=== PATIENT | female | born 1955 | race Caucasian/White ===

== ENCOUNTER → 2017-07-29 | Outpatient (CLI) | payer OTHER ==
[~2017-07-29] MED LIST: ASPI81EC PO; CALCAVITDA PO; ERGO400 PO; HYDACE5 PO; IBUP600 PO; LORA1 PO; MULVITMIND PO; NAPR220 PO; SULTRISS PO; TAMOXIFEN PO
== END ==
LOC: LAB EV 11:52 → LAB SHORT 11:52
DX: R35.0 Frequency of micturition (principal)
CPT/HCPCS: 87086

== ENCOUNTER 2017-11-02 06:19 | Day surgery (SDC) | payer OTHER ==
[~2017-11-02] VITALS: Ht 185.4 cm; Wt 87.3 kg
[~2017-11-02 06:19] MED LIST changes: +AMLODIPINE-OLM1 EACH PO; +CALCIUM LACTAT650 MG PO; +ESCI20 PO; +FLONASE ALLERG9.9 ML; +HYDHCL25 PO; +HYDSUL200 PO; +Nortriptyline H10 MG PO; +Salmon Oil 1,01 EACH PO; +Vitamin C100 M1 PO
== END 2017-11-02 10:06 | disposition home or self-care (01) ==
LOC: ORSCSDS 06:19
PROVIDERS: Otolaryngology
PROC: 09BL7ZZ Excision of Nasal Turbinate, Via Natural or Artificial Opening (ICD-10-PCS; principal; 2017-11-02 07:30)
PROC: 09SM0ZZ Reposition Nasal Septum, Open Approach (ICD-10-PCS; principal; 2017-11-02 07:30)
DX: J34.2 Deviated nasal septum (principal); J34.3 Hypertrophy of nasal turbinates; I10 Essential (primary) hypertension; F41.9 Anxiety disorder, unspecified; Z87.891 Personal history of nicotine dependence; Z79.899 Other long term (current) drug therapy
CPT/HCPCS: J0171; J1100; J2250; J2405; J2765; J3010; J7120

== ENCOUNTER → 2020-07-07 | Outpatient (CLI) | payer OTHER ==
[~2020-07-07] MED LIST changes: +Augmentin 500-1 EACH; +GABA100; +HYDPAM25 PO; +HYDR1TAB94 PO; +PROM25 PO; +Sulindac200 MG; +VITAMIN B122500 MCG PO; +VITAMIN D35000 UNI1 PO
== END | disposition home or self-care (01) ==
LOC: LAB SHORT 12:00 → LAB 12:00
DX: R82.90 Unspecified abnormal findings in urine (principal)
CPT/HCPCS: 87077; 87086; 87186

== ENCOUNTER → 2022-04-05 | Outpatient (CLI) | payer MEDICARE, OTHER | END | disposition home or self-care (01) | LOC: LAB SHORT 12:34 | DX: L81.4 Other melanin hyperpigmentation (principal) | CPT/HCPCS: 88305 ==

== ENCOUNTER 2022-11-29 08:19 | Day surgery (SDC) | payer MEDICARE, OTHER ==
[~2022-11-29] VITALS: Ht 185.4 cm; Wt 81.3 kg
[2022-11-29] MEDS ORDERED: DRIZALMA SPRINK30 MG (08:42)
[2022-11-29 10:39] VITALS: BP 111/74
== END 2022-11-29 10:36 | disposition home or self-care (01) ==
LOC: ORSCSDS 08:19
PROVIDERS: Internal Medicine Gastroenterology
PROC: 0DBH8ZX Excision of Cecum, Via Natural or Artificial Opening Endoscopic, Diagnostic (ICD-10-PCS; principal; 2022-11-29 10:00)
DX: R10.32 Left lower quadrant pain (principal); Z86.010 Personal history of colon polyps; D12.0 Benign neoplasm of cecum; K57.30 Diverticulosis of large intestine without perforation or abscess without bleeding; Z79.899 Other long term (current) drug therapy
CPT/HCPCS: 88305; J2704; J7120